=== PATIENT | male | born 1945 | race Caucasian/White ===

== ENCOUNTER 2020-01-01 17:48 | Emergency (ER) | payer OTHER, MEDICARE ==
--- OUTSIDE RECORDS SUMMARY | 2020-01-01 17:50 | XMS REPORT | Continuity of Care Document ---
:1945 Author Organization [facility] t Address [address] [place] [address] Care Team Providers Name Role Phone Unavailable Unavailable Unavailable Payers Payer Name Policy Type Policy Number Effective Date Expiration Date S ource Problems This patient has no known problems. Allergies, Adverse Reactions, Alerts Allergy Allergy Status Severity Reaction(s) Onset Inactive Treating Comm ents Source Name Type Date Date Clinician No Known DA Active U [facility] Allergie 05-17 [place] s 00:00: d 00 [facility] Medications This patient has no known medications. Procedures This patient has no known procedures. Results Test Description Test Time Test Comments Results Result Comments Source PROTHROMBIN TIME 2019-05-17 07:44:00 Test Item Value Reference Range Interpretation Comme nts PT PATIENT (test code = PTP) 11.5 SECONDS 9.3-12.9 N INTERNATIONAL NORMAL RATIO (test code = INR) 1.02 INR Unit 0.8-1.2 N THROMBOPLASTIN TIME [id number] 07:44:00 Test Item Value Reference Range Interpretation Comments THROMBOPLASTIN TIME PARTIAL 32.9 SECONDS 26-35 N (test code = PTT) BASIC METABOLIC [id number] 07:39:00 Test Item Value Reference Range Interpretation Comments SODIUM (test code = NA) 141 mmol/L 134-147 N POTASSIUM (test code = 4.3 mmol/L 3.4-5.0 N K) CHLORIDE (test code = 107 mmol/L 100-108 N CL) CARBON DIOXIDE (test 29 mmol/L 21-32 N code = CO2) ANION GAP (test code = 5.0 GAP calc 4.0-15.0 N GAP) GLUCOSE (test code = 115 MG/DL 70-110 H GLU) BLOOD UREA NITROGEN 17 MG/DL 7-18 N (test code = BUN) GLOMERULAR FILTRATION >=60 max estimate >60 RATE (test code = GFR) estGFR CREATININE (test code = 0.8 MG/DL 0.8-1.3 N CREAT) CALCIUM (test code = CA) 8.8 MG/DL 8.5-10.1 N CBC W/AUTO [id number] 07:18:00 Test Item Value Reference Range Interpretation Comments WHITE BLOOD CELL (test code = 6.7 K/mm3 3.5-11.0 N WBC) RED BLOOD CELL (test code = RBC) 4.39 M/mm3 4.70-6.10 L HEMOGLOBIN (test code = HGB) 12.1 G/DL 12.3-15.9 L HEMATOCRIT (test code = HCT) 36.1 % 35.8-46.7 N MEAN CELL VOLUME (test code = 82.2 Fl 86.3-98.9 L MCV) MEAN CELL HGB (test code = MCH) 27.6 pg 28.9-34.4 L MEAN CELL HGB CONCETRATION (test 33.5 G/DL 32.1-34.5 N code = MCHC) RED CELL DISTRIBUTION WIDTH (test 15.3 SD 11.5-14.5 H code = RDW) PLATELET COUNT (test code = PLT) 257.0 K/mm3 150-450 N MEAN PLATELET VOLUME (test code = 10.70 fL 7.0-9.6 H MPV) NEUTROPHIL % (test code = NT%) 62.4 % 40-76 N LYMPHOCYTE % (test code = LY%) 19.1 % 20.5-51.1 L MONOCYTE % (test code = MO%) 15.1 % 1.7-9.3 H EOSINOPHIL % (test code = EO%) 2.5 % 0.0-6.0 N BASOPHIL % (test code = BA%) 0.9 % 0.0-2.0 N NEUTROPHIL # (test code = NT#) 4.17 K/mm3 1.8-7.6 N LYMPHOCYTE # (test code = LY#) 1.3 K/mm3 0.6-3.0 N MONOCYTE # (test code = MO#) 1.0 K/mm3 0.2-1.5 N EOSINOPHIL # (test code = EO#) 0.2 K/mm3 0.0-0.4 N BASOPHIL # (test code = BA#) 0.1 K/mm3 0.0-0.2 N MANUAL DIFF REQUIRED (test code = NO DIFF/SCN CRITERIA MDIFF)
[2020-01-01] MEDS ORDERED: PANTOPRAZOLE 40 MG INJ ONE (18:45)
[2020-01-01] MEDS ORDERED: NA CHLORIDE 0.9% 1,000 ML ONE (18:45)
[2020-01-01] MEDS ORDERED: NA CHLORIDE 0.9% 250 ML ONE ×2 (18:45→21:01)
[2020-01-01 18:48] LABS: Absolute Lymphocytes (CBC) 0.9 K/uL (0.7-4.9); Basophils % 0.3 % (0-1.3); Hematocrit 24.3 % (39.6-49.0); Lymphocytes % 7.1 % (15.3-44.8); MPV 9.5 fL (7.6-11.3)
[2020-01-01 19:01] LABS: Protime INR 1.1
--- NOTE | 2020-01-01 19:03 | RAD REPORT ---
EXAM DESCRIPTION: RAD - Chest Single View - 01/01/2020 6:34 pm CLINICAL HISTORY: COUGH Chest pain. COMPARISON: No comparisons FINDINGS: Portable technique limits examination quality. The lungs are grossly clear. The heart is normal in size. No displaced fractures. IMPRESSION: No acute intrathoracic process suspected.
--- NOTE | 2020-01-01 19:11 | ER ---
Nurse's Notes [facility] Name: Gerson Parker III Age: 74 yrs Sex: Male : 1945 Arrival Date: 01/01/2020 Time: 17:52 Bed 6 Private MD: Jose De Jesus Harris B Diagnosis: Gastrointestinal hemorrhage, unspecified;Anemia, unspecified;Weakness;Unspecified kidney failure-acute and chronic Presentation: 12/31 18:01 Chief complaint: Dizziness x 2 days, abdominal pain and black stools today. Coronavirus hb screen: At this time, the client does not indicate any symptoms associated with coronavirus-19. Ebola Screen: No symptoms or risks identified at this time. Initial Sepsis Screen: Does the patient meet any 2 criteria? No. Patient's initial sepsis screen is negative. Does the patient have a suspected source of infection? No. Patient's initial sepsis screen is negative. Risk Assessment: Do you want to hurt yourself or someone else? Patient reports no desire to harm self or others. Onset of symptoms was December 31, 2019. 18:01 Method Of Arrival: Wheelchair hb 18:01 Acuity: SHERRELL 3 hb Historical: - Allergies: 18:06 No Known Allergies; hb - Home Meds: 18:06 fluticasone nasal nasal [Active]; metformin Oral [Active]; zaleplon oral oral [Active]; hb levocetirizine oral oral [Active]; amlodipine oral [Active]; telmisartan oral oral [Active]; atorvastatin oral oral [Active]; Toujeo SoloStar subcutaneous subcutaneous [Active]; Novolog Sub-Q [Active]; Omeprazole Oral [Active]; clopidogrel oral oral [Active]; Chlorthalidone Oral [Active]; - PMHx: 18:06 Diabetes - IDDM; High Cholesterol; Hypertension; Prostate CA; hb - PSHx: 18:06 Gastric Bypass; Cholecystectomy; Prostate; hb - Immunization history:: Adult Immunizations up to date. - Social history:: Smoking status: Patient denies any tobacco usage or history of. - Family history:: not pertinent. Screenin:49 Abuse screen: Denies threats or abuse. Nutritional screening: No deficits noted. ll1 Tuberculosis screening: No symptoms or risk factors identified. Fall Risk None identified. IV access (20 points). Gait- Weak (10 pts.). Total Taylor Fall Scale indicates Low Risk Score (25-44 pts). Fall prevention measures have been instituted. Side Rails Up X 2 Frequent Obs/Assesments occuring As available Patient and Family Educated on Fall Prevention Program and strategies. Assessment: 18:47 General: Appears ill, Behavior is calm, cooperative, appropriate for age. Pain: ll1 Complains of pain in umbilical area Quality of pain is described as aching. Neuro: Level of Consciousness is awake, alert, obeys commands, Oriented to person, place, time, situation, Appropriate for age Well Servicing Rig Operator are equal bilaterally Moves all extremities. Full function Gait is steady, Speech is normal, Facial symmetry appears normal, Reports lightheaded. Cardiovascular: No deficits noted. Respiratory: No deficits noted. GI: Abdomen is flat, Bowel sounds present X 4 quads. Abd is soft and non tender X 4 quads. Reports lower abdominal pain, rectal bleeding. 19:30 Neuro: Level of Consciousness is awake, alert, obeys commands, Oriented to person, rv place, time, situation, Moves all extremities. Full function Reports. 22:30 General: Appears comfortable, Behavior is calm, cooperative. Respiratory: Airway is rv patent Respiratory effort is even, unlabored, Breath sounds are clear bilaterally. 23:05 General: Appears comfortable, Behavior is calm, cooperative. Pain: Denies pain. Neuro: rv Level of Consciousness is awake, alert, obeys commands, Oriented to person, place, time, situation. Respiratory: Airway is patent Respiratory effort is even, unlabored, Breath sounds are clear bilaterally. 23:05 Neuro: Level of Consciousness is awake, alert, obeys commands, Oriented to person, rv place, time, situation. GI: Abdomen is flat, non-distended, Bowel sounds present X 4 quads. 23:13 Reassessment: SECOND UNIT OF RBC, ONGOING UPON TRANSFER. REPORT GIVEN TO EMS. rv Vital Signs: 18:01 BP 116 / 65; Pulse 97; Resp 16; Temp 97.1; Pulse Ox 100% on R/A; Weight 72.57 kg; hb Height 5 ft. 7 in. (170.18 cm); Pain 4/10; 18:54 BP 124 / 62; Pulse 78; Resp 17; Pulse Ox 100% ; ll1 19:30 BP 122 / 57; Pulse 80; Resp 17; Pulse Ox 100% on R/A; rv 20:00 BP 130 / 62; Pulse 85; Resp 16; Pulse Ox 100% on R/A; rv 21:00 BP 122 / 61; Pulse 82; Resp 17; Pulse Ox 100% on R/A; rv 22:00 BP 116 / 78; Pulse 79; Resp 16; Pulse Ox 100% on R/A; rv 23:00 BP 118 / 62; Pulse 75; Resp 16; Temp 98.7; Pulse Ox 100% on R/A; rv 18:01 Body Mass Index 25.06 (72.57 kg, 170.18 cm) hb ED Course: 17:52 Patient arrived in ED. mr 17:52 Jose De Jesus Harris MD is Private Physician. mr 18:03 Triage completed. hb 18:06 Arm band placed on. hb 18:07 Seth Godoy RN is Primary Nurse. ll1 18:15 Munir Casas MD is Attending Physician. ramiro 18:20 Inserted saline lock: 20 gauge in right antecubital area, using aseptic technique. ll1 Blood collected. 18:34 XRAY Chest (1 view) In Process Unspecified. EDMS 18:49 Patient has correct armband on for positive identification. Bed in low position. Call ll1 light in reach. Side rails up X 1. 19:12 Initiated a transfer with Ester Strong RN from the [facility] transfer Center. mw2 19:[address] Weiss reclamation furnace operator for [facility] with Dr. Casas for patient mw2 transfer consultation. 19:30 Inserted saline lock: 20 gauge in right antecubital area, using aseptic technique. rv 19:55 Dr. Weiss accepted pt. mw2 20:05 administrative approval given by Ester Strong RN/ patient was accepted to [address] 15 tower bed 1538/ Dr. Weiss has accepted the patient in transfer/ report to be called to [phone]. 20:16 CT Abd/Pelvis - IV Contrast Only In Process Unspecified. EDMS 20:50 spoke with [facility] about transporting patient. They currently are on transfers mw2 in [place] and won't have trucks available for a couple hours. 21:14 called [facility] to request transportation for patient. they stated "we will have mw2 a truck to your location in an hour.". 23:06 No provider procedures requiring assistance completed. rv 23:12 IV is patent, with fluids infusing freely, with good blood return, Patient transferred, rv IV remains in place. Administered Medications: 18:46 Drug: ProTONIX 80 mg Route: IVP; Site: right antecubital; ll1 23:00 Follow up: Response: No adverse reaction rv 18:46 Drug: NS 0.9% 1000 ml Route: IV; Rate: 1 bolus; Site: right antecubital; ll1 23:04 Follow up: IV Status: Completed infusion; IV Intake: 1000ml rv 18:47 Drug: ProTONIX 8 mg/hr Route: IV; Rate: 25 ml/hr; Site: right antecubital; ll1 23:04 Follow up: IV Status: Infusion continued upon transfer rv 19:30 Drug: NS 0.9% 1000 ml Route: IV; Rate: 125 ml/hr; Site: right antecubital; rv 23:03 Follow up: IV Status: Completed infusion; IV Intake: 250ml rv 21:00 Drug: Benadryl 12.5 mg Route: IVP; Site: right antecubital; rv 23:03 Follow up: Response: No adverse reaction rv 21:00 Drug: Tylenol 650 mg Route: PO; rv 23:03 Follow up: Response: No adverse reaction rv Medication: 22:00 Blood products: PRBCs X 1 unit given. See transfusion record. rv Intake: 23:03 IV: 250ml; Total: 250ml. rv 23:04 IV: 1000ml; Total: 1250ml. rv Outcome: 19:11 ER care complete, transfer ordered by . ramiro 23:02 Patient left the ED. mw2 23:12 Transferred by ground EMS to [facility], Transfer form completed. rv X-rays sent w/ patient. 23:12 Condition: good 23:12 Instructed on the need for transfer. Signatures: Dispatcher [employer] EDMunir Cruz MD MD cha Rivera, Mary mr Veronica Quiroz, RN MARQUISE Edi Vela mw2 Marques Chavez RN RN Seth Godoy RN RN ll1
--- NOTE | 2020-01-01 19:11 | EDPHYS ---
Physician Documentation [facility] Name: Gerson Parker III Age: 74 yrs Sex: Male : 1945 Arrival Date: 01/01/2020 Time: 17:52 Bed 6 Private MD: Jose De Jesus Harris B ED Physician Munir Casas HPI: 12/31 19:02 This 74 yrs old Male presents to ER via Wheelchair with complaints of ramiro Dizziness, Abdominal Pain, Black/Tarry Stools. 19:02 The patient presents with dizziness, feeling faint, generalized weakness. Onset: The ramiro symptoms/episode began/occurred 1 day(s) ago. Context: occurred at home. Modifying factors: The symptoms are alleviated by lying down, the symptoms are aggravated by standing up. Associated signs and symptoms: The patient has no apparent associated signs or symptoms. Severity of symptoms: At their worst the symptoms were moderate in the emergency department the symptoms have resolved. Patient's baseline: Neuro: alert and fully oriented. The patient has not experienced similar symptoms in the past. Historical: - Allergies: 18:06 No Known Allergies; hb - Home Meds: 18:06 fluticasone nasal nasal [Active]; metformin Oral [Active]; zaleplon oral oral [Active]; hb levocetirizine oral oral [Active]; amlodipine oral [Active]; telmisartan oral oral [Active]; atorvastatin oral oral [Active]; Toujeo SoloStar subcutaneous subcutaneous [Active]; Novolog Sub-Q [Active]; Omeprazole Oral [Active]; clopidogrel oral oral [Active]; Chlorthalidone Oral [Active]; - PMHx: 18:06 Diabetes - IDDM; High Cholesterol; Hypertension; Prostate CA; hb - PSHx: 18:06 Gastric Bypass; Cholecystectomy; Prostate; hb - Immunization history:: Adult Immunizations up to date. - Social history:: Smoking status: Patient denies any tobacco usage or history of. - Family history:: not pertinent. ROS: 19:02 Constitutional: Negative for fever, chills, and weight loss, Eyes: Negative for injury, ramiro pain, redness, and discharge, ENT: Negative for injury, pain, and discharge, Neck: Negative for injury, pain, and swelling, Cardiovascular: Negative for chest pain, palpitations, and edema, Respiratory: Negative for shortness of breath, cough, wheezing, and pleuritic chest pain, Back: Negative for injury and pain, : Negative for injury, bleeding, discharge, and swelling, MS/Extremity: Negative for injury and deformity, Skin: Negative for injury, rash, and discoloration, Neuro: Negative for headache, weakness, numbness, tingling, and seizure, Psych: Negative for depression, anxiety, suicide ideation, homicidal ideation, and hallucinations, Allergy/Immunology: Negative for hives, rash, and allergies, Endocrine: Negative for neck swelling, polydipsia, polyuria, polyphagia, and marked weight changes, Hematologic/Lymphatic: Negative for swollen nodes, abnormal bleeding, and unusual bruising. 19:02 Abdomen/GI: Positive for abdominal pain, black/tarry stool. Exam: 19:02 Constitutional: This is a well developed, well nourished patient who is awake, alert, ramiro and in no acute distress. Head/Face: Normocephalic, atraumatic. Eyes: Pupils equal round and reactive to light, extra-ocular motions intact. Lids and lashes normal. Conjunctiva and sclera are non-icteric and not injected. Cornea within normal limits. Periorbital areas with no swelling, redness, or edema. ENT: Nares patent. No nasal discharge, no septal abnormalities noted. Tympanic membranes are normal and external auditory canals are clear. Oropharynx with no redness, swelling, or masses, exudates, or evidence of obstruction, uvula midline. Mucous membranes moist. Neck: Trachea midline, no thyromegaly or masses palpated, and no cervical lymphadenopathy. Supple, full range of motion without nuchal rigidity, or vertebral point tenderness. No Meningismus. Chest/axilla: Normal chest wall appearance and motion. Nontender with no deformity. No lesions are appreciated. Respiratory: Lungs have equal breath sounds bilaterally, clear to auscultation and percussion. No rales, rhonchi or wheezes noted. No increased work of breathing, no retractions or nasal flaring. Back: No spinal tenderness. No costovertebral tenderness. Full range of motion. Male : Normal genitalia with no discharge or lesions. MS/ Extremity: Pulses equal, no cyanosis. Neurovascular intact. Full, normal range of motion. Neuro: Awake and alert, GCS 15, oriented to person, place, time, and situation. Cranial nerves II-XII grossly intact. Motor strength 5/5 in all extremities. Sensory grossly intact. Cerebellar exam normal. Normal gait. Psych: Awake, alert, with orientation to person, place and time. Behavior, mood, and affect are within normal limits. 19:02 Cardiovascular: Rate: tachycardic, Rhythm: regular, Pulses: Pulses are 4+ in bilateral radial, brachial, femoral, popliteal, posterior tibial and and dorsalis pedis arteries.. Heart sounds: normal, Edema: is not appreciated, JVD: is not appreciated. 19:02 ECG was reviewed by the Attending Physician. 19:02 Abdomen/GI: Inspection: abdomen appears normal, Bowel sounds: normal, Palpation: abdomen is soft and non-tender, Rectal exam: Prostate: normal, rectal tone normal, Stool: guaiac positive, black, hemorrhoid(s), are not appreciated, mass, is not appreciated, swelling, is not appreciated, tenderness, is not appreciated, Liver: no appreciated palpable abnormalities, Hernia: not appreciated. Vital Signs: 18:01 BP 116 / 65; Pulse 97; Resp 16; Temp 97.1; Pulse Ox 100% on R/A; Weight 72.57 kg; hb Height 5 ft. 7 in. (170.18 cm); Pain 4/10; 18:54 BP 124 / 62; Pulse 78; Resp 17; Pulse Ox 100% ; ll1 19:30 BP 122 / 57; Pulse 80; Resp 17; Pulse Ox 100% on R/A; rv 20:00 BP 130 / 62; Pulse 85; Resp 16; Pulse Ox 100% on R/A; rv 21:00 BP 122 / 61; Pulse 82; Resp 17; Pulse Ox 100% on R/A; rv 22:00 BP 116 / 78; Pulse 79; Resp 16; Pulse Ox 100% on R/A; rv 23:00 BP 118 / 62; Pulse 75; Resp 16; Temp 98.7; Pulse Ox 100% on R/A; rv 18:01 Body Mass Index 25.06 (72.57 kg, 170.18 cm) hb MDM: 18:19 Patient medically screened. ramiro 19:06 Differential diagnosis: generalized weakness, GI bleed, hypovolemia, idiopathic ramiro dizziness, near-syncope. Data reviewed: vital signs, nurses notes, lab test result(s), EKG, radiologic studies. Data interpreted: air sampling and monitoring: rate is 78 beats/min, Pulse oximetry: on is 100 %. Test interpretation: by ED physician or midlevel provider: ECG, plain radiologic studies. Counseling: I had a detailed discussion with the patient and/or guardian regarding: the historical points, exam findings, and any diagnostic results supporting the discharge/admit diagnosis, lab results, radiology results, the need to transfer to another facility, for higher level of care, [facility] does not immediately have the required specialist. ED course: upper gi bleed, gastric bypass, no gi md, transfer. 12/31 18:19 Order name: Basic Metabolic Panel; Complete Time: 19:41 [facility] 12/31 18:19 Order name: CBC with Diff [facility] 12/31 18:19 Order name: LFT's; Complete Time: 19:41 [facility] 12/31 18:19 Order name: Magnesium; Complete Time: 19:41 [facility] 12/31 18:19 Order name: NT PRO-BNP; Complete Time: 19:41 [facility] 12/31 18:19 Order name: PT-INR; Complete Time: 19:15 [facility] 12/31 18:19 Order name: Troponin (emerg Dept Use Only); Complete Time: 19:41 [facility] 12/31 18:19 Order name: XRAY Chest (1 view); Complete Time: 19:15 [facility] 12/31 18:19 Order name: Type And Screen [facility] 12/31 18:19 Order name: Lipase; Complete Time: 19:41 [facility] 12/31 18:19 Order name: CT Abd/Pelvis - IV Contrast Only [facility] 12/31 19:27 Order name: Packed RBC Leukored [facility] 12/31 20:34 Order name: ABO/RH no charge [facility] 12/31 20:59 Order name: Manual Differential [facility] 12/31 18:19 Order name: EKG; Complete Time: 18:20 [facility] 12/31 18:19 Order name: Cardiac monitoring; Complete Time: 19:13 [facility] 12/31 18:19 Order name: EKG - Nurse/Tech; Complete Time: 19:13 [facility] 12/31 18:19 Order name: IV Saline Lock; Complete Time: 18:26 [facility] 12/31 18:19 Order name: Labs collected and sent; Complete Time: 18:26 [facility] 09/13 18:19 Order name: O2 Per Protocol; Complete Time: 18:26 [facility] 12/31 18:19 Order name: O2 Sat Monitoring; Complete Time: 18:26 [facility] 12/31 18:19 Order name: IV Saline Lock - Large Bore; Complete Time: 18:26 [facility] 12/31 19:14 Order name: Transfuse; Complete Time: 23:12 [facility] EC:02 Rate is 78 beats/min. Rhythm is regular. QRS Serena is Normal. CO interval is normal. QRS ramiro interval is normal. QT interval is normal. No Q waves. T waves are Normal. No ST changes noted. Clinical impression: NSR w/ Non-specific ST/T Changes and No evidence of ischemia. Interpreted by me. Reviewed by me. Administered Medications: 18:46 Drug: ProTONIX 80 mg Route: IVP; Site: right antecubital; ll1 23:00 Follow up: Response: No adverse reaction rv 18:46 Drug: NS 0.9% 1000 ml Route: IV; Rate: 1 bolus; Site: right antecubital; ll1 23:04 Follow up: IV Status: Completed infusion; IV Intake: 1000ml rv 18:47 Drug: ProTONIX 8 mg/hr Route: IV; Rate: 25 ml/hr; Site: right antecubital; ll1 23:04 Follow up: IV Status: Infusion continued upon transfer rv 19:30 Drug: NS 0.9% 1000 ml Route: IV; Rate: 125 ml/hr; Site: right antecubital; rv 23:03 Follow up: IV Status: Completed infusion; IV Intake: 250ml rv 21:00 Drug: Benadryl 12.5 mg Route: IVP; Site: right antecubital; rv 23:03 Follow up: Response: No adverse reaction rv 21:00 Drug: Tylenol 650 mg Route: PO; rv 23:03 Follow up: Response: No adverse reaction rv Disposition: 01/01/20 19:[address] [facility]. Diagnosis are Gastrointestinal hemorrhage, unspecified, Anemia, unspecified, Weakness, Unspecified kidney failure - acute and chronic. - Reason for transfer: Higher level of care. - Accepting physician is to [facility]. - Condition is Fair. - Problem is new. - Symptoms have improved. Signatures: Dispatcher [employer] EDMunir Cruz MD MD cha Baxter, Heather RN RN Edi Vela mw2 Marques Chavez, RN RN rv Seth Godoy RN RN ll1 Corrections: (The following items were deleted from the chart) 19:46 19:11 01/01/2020 19:[address] [facility] Diagnosis is Gastrointestinal hemorrhage, unspecified; Anemia, unspecified; Weakness. Reason for transfer: Higher level of care. Accepting physician is to [facility]. Condition is Fair. Problem is new. Symptoms have improved. [facility] 23:02 19:46 01/01/2020 19:[address] [facility]. mw2 Diagnosis is Gastrointestinal hemorrhage, unspecified; Anemia, unspecified; Weakness; Unspecified kidney failure - acute and chronic. Reason for transfer: Higher level of care. Accepting physician is to [facility]. Condition is Fair. Problem is new. Symptoms have improved. [facility]
[2020-01-01 19:22] LABS: ALT/SGPT 20 U/L (12-78); AST/SGOT 11 U/L (15-37); Albumin 3.2 g/dL (3.4-5.0); Alkaline Phosphatase 41 U/L (45-117); BUN Blood Urea Nitrogen 74 mg/dL (7-18); Bicarbonate 26 mmol/L (21-32); Bilirubin Direct 0.1 mg/dL (0-0.2); Bilirubin Total 0.4 mg/dL (0.2-1.0); Glucose Level 291 mg/dL (74-106); Lipase 138 U/L (73-393); Magnesium 2.1 mg/dL (1.8-2.4); NT PRO-BNP 45 pg/mL (<125); Potassium 4.4 mmol/L (3.5-5.1); Protein, Total 6.5 g/dL (6.4-8.2); Sodium Level 136 mmol/L (136-145); Troponin (Emerg Dept Use Only) < 0.02 ng/mL (0.0-0.045)
--- NOTE | 2020-01-01 20:25 | RAD REPORT ---
EXAM DESCRIPTION: CTAbdomen Pelvis W Contrast - 01/01/2020 8:16 pm CLINICAL HISTORY: Abdominal pain. ABD PAIN COMPARISON: No comparisons TECHNIQUE: Biphasic CT imaging of the abdomen and pelvis was performed with 100 ml non-ionic IV cont rast. All CT scans are performed using dose optimization technique as appropriate and may include automated exposure control or mA/KV adjustment according to patient size. FINDINGS: The lung bases are clear.Cholecystectomy. Postsurgical changes are present about the stoma ch. The liver, spleen, pancreas, adrenal glands and left kidney are within normal limits. Small hypodensi ties seen medial cortex of the right kidney measuring 8 mm, incompletely evaluated due to small size but favored to represent a small cyst. No bowel obstruction, free air, free fluid or abscess. Colonic diverticulosis coli is present without diverticulitis. The appendix is normal. No evidence of significant lymphadenopathy. Moderate lumbar degenerative changes. IMPRESSION: No acute intra-abdominal or pelvic finding. Sigmoid diverticulosis coli without diverticulitis.
[2020-01-01] MEDS ORDERED: ACETAMINOPHEN 325 MG TABLET ONE (21:02)
[2020-01-01] MEDS ORDERED: DIPHENHYDRAMINE 50 MG/ML VIAL ONE (21:02)
[2020-01-01 21:29] LABS: Blood Morphology Comment NOT SEEN (NOT SEEN); Platelet Estimate ADEQ
[2020-01-02 01:22] VITALS: TEMP 97.1; O2SAT 100
[2020-01-02 01:23] VITALS: BP 124/62
== END 2020-01-01 23:02 | disposition short-term general hospital (02) ==
LOC: ER 17:48
PROC: 30233N1 Transfusion of Nonautologous Red Blood Cells into Peripheral Vein, Percutaneous Approach (ICD-10-PCS; principal; 2020-01-01)
DX: D64.9 Anemia, unspecified (principal); R53.1 Weakness; E11.22 Type 2 diabetes mellitus with diabetic chronic kidney disease; I12.9 Hypertensive chronic kidney disease with stage 1 through stage 4 chronic kidney disease, or unspecified chronic kidney disease; N18.9 Chronic kidney disease, unspecified; N17.9 Acute kidney failure, unspecified; Z79.4 Long term (current) use of insulin; Z98.84 Bariatric surgery status
CPT/HCPCS: 96365; 93005; 85025; 80048; 36415; 86900; 83735; 86850; 85610; 86901; 80076; 84484; 83690; 83880; 74177; 71045; 36430 ×2; 96375; 99285; 96366; Q9967; J1200; C9113; P9016 ×2; J7050 ×2; J7030